=== PATIENT | male | born 2005 | race Two or more races ===

== ENCOUNTER 2023-04-29 16:39 | Emergency (ER) | payer MEDICAID, OTHER ==
[~2023-04-29] VITALS: Ht 172.7 cm; Wt 98.0 kg
[2023-04-29] MEDS ORDERED: TETANUS-DIPTH-ACEL PERTUSSIS 0.5ML SYR Tdap IM ONE (19:30)
[2023-04-29 21:29] VITALS: BP 123/67; PULSE 78; RESP 20; O2SAT 97
[2023-04-29] MEDS ORDERED: NAP500T PO (21:38)
[2023-04-29] MEDS ORDERED: KETOROLAC TROMETH 30 MG/ML 1ML VIAL IV ONE (21:45)
== END 2023-04-29 22:13 | disposition home or self-care (01) ==
LOC: ER 16:39 → EDBD 16:39 → ER 22:13
DX: S60.511A Abrasion of right hand, initial encounter (principal); S06.0X0A Concussion without loss of consciousness, initial encounter; V29.99XA Rider (driver) (passenger) of other motorcycle injured in unspecified traffic accident, initial encounter; Y93.89 Activity, other specified; Y92.89 Other specified places as the place of occurrence of the external cause; Y99.8 Other external cause status
CPT/HCPCS: 70450; 71046; 72125; 73030; 73060; 73130; 90471; 90715; 96374; 99285; J1885; 96372